=== PATIENT | female | born 1950 | race Caucasian/White ===

== ENCOUNTER 2016-07-29 14:37 | Inpatient (IN) | payer MEDICARE, OTHER ==
[~2016-07-29] VITALS: Ht 172.7 cm; Wt 95.4 kg
[2016-07-29] MEDS ORDERED: SODIUM CHLORIDE 0.9% 1L BAG IV* STA (15:12)
[2016-07-29 15:43] LABS: ADD SCAN DIFF NO
[2016-07-29 15:46] LABS: BASOPHILS % 0.4 % (0.0-2.0); EOSINOPHILS # 0.1 10^3/ul (0.0-0.5); EOSINOPHILS % 0.7 % (0.0-7.0); HEMATOCRIT 41.9 % (37.0-47.0); HEMOGLOBIN 15.4 g/dl (12.0-16.0); LYMPHOCYTES # 2.4 10^3/ul (0.8-2.9); LYMPHOCYTES % 24.6 % (15.0-51.0); MEAN CORPUSCULAR HEMOGLOBIN 31.1 pg (29.0-33.0); MEAN CORPUSCULAR HGB CONC 36.8 g/dl (32.0-37.0); MEAN CORPUSCULAR VOLUME 84.6 fl (82.0-101.0); MEAN PLATELET VOLUME 9.6 fl (7.4-10.4); MONOCYTES % 10.2 % (0.0-11.0); NEUTROPHIL # 6.2 10^3/ul (1.6-7.5); NEUTROPHILS % 63.2 % (39.0-77.0); NUCLEATED RED BLOOD CELLS # 0.1 10^3/ul (0.0-0.0); NUCLEATED RED BLOOD CELLS% 0.6 /100WBC (0.0-0.0); PLATELET COUNT 293 10^3/UL (140-415); RED BLOOD COUNT 4.95 10^6/ul (4.20-5.40); RED CELL DISTRIBUTION WIDTH 12.8 % (11.5-14.5); WHITE BLOOD COUNT 9.8 10^3/ul (4.8-10.8)
[2016-07-29 15:47] LABS: ADD UMIC YES; URINE BILIRUBIN (Dip) 1+ (NEGATIVE); URINE BLOOD (Dip) NEGATIVE (NEGATIVE); URINE COLOR LT. YELLOW (YELLOW); URINE GLUCOSE (Dip) NEGATIVE (NEGATIVE); URINE KETONES (Dip) NEGATIVE (NEGATIVE); URINE LEUKOCYTE ESTERASE (Dip) 2+ (NEGATIVE); URINE NITRITE (Dip) NEGATIVE (NEGATIVE); URINE TOTAL PROTEIN (Dip) TRACE (NEGATIVE); URINE UROBILINOGEN (Dip) 1.0 E.U./dL (0.1-1.0)
--- NOTE | 2016-07-29 15:48 | RADRPT ---
PROCEDURE: XR Chest. CLINICAL INDICATION: Sepsis TECHNIQUE: Chest AP portable COMPARISON: None available FINDINGS: The mediastinal structures are unremarkable. There is calcification of the thoracic aorta (consiste nt with atherosclerosis). The heart is normal in size and configuration. The pulmonary vascularity is normal. There are low lung volumes. There is mild bibasilar subsegmental atelectasis. No cons olidation is identified. The pleural spaces are unremarkable. The osseous structures are unremarka ble. IMPRESSION: Calcification of the thoracic aorta (consistent with atherosclerosis). Low lung volumes. Mild bibasilar subsegmental atelectasis No failure or consolidation. RPTAT: HGDB .Theodore aSnchez MD, Date Time Electronically viewed and signed by .Theodore Sanchez MD, on 07/29/2016 15:47 .B/
[2016-07-29 15:57] LABS: ALBUMIN 4.1 g/dl (3.3-4.9)
[2016-07-29 15:59] LABS: INR 0.89; PARTIAL THROMBOPLASTIN TIME 23.2 Sec (25.0-35.0); PT RATIO 0.9
[2016-07-29 16:00] LABS: BILIRUBIN,INDIRECT 0.6 mg/dl (0-1.1); BILIRUBIN,TOTAL 0.6 mg/dl (0.2-1.3); CREATININE 0.74 mg/dl (0.44-1.00)
[2016-07-29 16:01] LABS: ALBUMIN/GLOBULIN RATIO 1.2; CALCIUM 10.3 mg/dl (8.4-10.2); TOTAL PROTEIN 7.5 g/dl (6.1-8.1)
[2016-07-29 16:09] LABS: POTASSIUM 2.1 mmol/L (3.5-5.1)
[2016-07-29 16:11] LABS: ICTOTEST NEGATIVE (NEGATIVE)
[2016-07-29] MEDS ORDERED: AZTREONAM 1 GM/NS (PMX) 50 ML IVPB STA (16:11)
[2016-07-29] MEDS ORDERED: VANCOMYCIN 1 GM (PMX) 250 ML IVPB STA (16:11)
[2016-07-29] MEDS ORDERED: POTASSIUM CHLORIDE (SR) 20 MEQ TAB PO STA (16:12)
--- NOTE | 2016-07-29 16:12 | RADRPT ---
PROCEDURE: CT Brain without contrast. CLINICAL INDICATION: Altered mental status, possible sepsis TECHNIQUE: Routine CT scan of the brain was performed on a high resolution multi detector scanner without intravenous contrast. One or more of the following dose reduction techniques were used: Auto mated exposure control; Adjustment of the mA and/or kV according to patient size; Use of iterative r econstruction technique. CTDI = 42 mGy. DLP = 120 mGy-cm. COMPARISON: No prior relevant examinations are available for comparison. FINDINGS: Hemorrhage: No evidence of intracranial hemorrhage. Acute ischemic changes: No evidence of acute ischemic changes. Mass effect/Midline shift: None. Parenchymal volume: Within normal limits for age. Ventricular system: Concordant with parenchymal volume. Chronic changes: Mild chronic-appearing microvascular ischemic changes of the supratentorial white m atter. Atherosclerotic calcifications of the cavernous portions of both internal carotid arteries ar e present. Extracranial soft tissues: Unremarkable. Calvarium: No fractures. Paranasal sinuses: Visualized paranasal sinuses are clear. Mastoid air cells: Visualized mastoid air cells are clear. IMPRESSION: No acute intracranial abnormalities. Mild chronic-appearing microvascular ischemic changes of the supratentorial white matter. MRI of the brain may be useful for further evaluation. RPTAT: AADD .Benson Dotson MD, MD Date Time Electronically viewed and signed by .Benson Dotson MD, MD on 07/29/2016 16:12 .B/
[2016-07-29 16:13] LABS: TROPONIN-I 0.042 ng/ml (0.00-0.12)
[2016-07-29 16:16] LABS: BACTERIA,URINE MODERATE
[2016-07-29 16:17] LABS: MUCUS,URINE MODERATE; TRANSITIONAL EPI CELLS,URINE FEW; URINE RBCS NONE SEEN /HPF (0)
[2016-07-29] MEDS ORDERED: POTASSIUM CHLORIDE 250 ML IVPB ONE (16:30)
[2016-07-29] MEDS ORDERED: ONDANSETRON 4 MG INJ IV PRN ×2 (16:30→18:30)
[2016-07-29] MEDS ORDERED: ACETAMINOPHEN 325 MG TAB PO PRN ×2 (16:30→18:30)
--- NOTE | 2016-07-29 17:23 | RADRPT ---
PROCEDURE: CT abdomen and pelvis without IV contrast. CLINICAL INDICATION: Abdomen pain. TECHNIQUE: CT scan of the abdomen and pelvis was performed on a [address] scanner. The patient is scanned without IV contrast. Coronal and sagittal reformatted images were obtained from the axia l source images. Images were reviewed on a high-resolution PACS workstation. Total radiation dose: Total CTDIvol: 15.7 mGy. Total DLP: 1035 mGy-cm. One or more of the following dose reduction techniques were used: automated exposure control, adjustment of the mA and/or kV acc ording to patient size, or use of iterative reconstruction technique. COMPARISON: None available. FINDINGS: CT abdomen: The lung bases are clear. The heart is not enlarged without pericardial thickening or effusion. The liver is normal in size and density without focal hepatic mass or biliary dilatation. The splee n is normal in size. The stomach is partially collapsed but is grossly unremarkable. The pancreas as visualized is normal. There are multiple stones in the gallbladder and there is no evidence of biliary dilatation. The adrenal glands are symmetrical and normal. There is 2 cm simple right renal cyst. The kidneys are symmetrically normal bilaterally. No renal obstructive uropathy or mass lesion is seen.. The aorta is normal in caliber. There is no retroperitoneal lymphadenopathy. The leticia hepatis reg ion is clear. There is diffuse diverticulosis of the left colon/transverse colon without evidence o f diverticulitis. The bowel and mesentery, as visualized, are equally unremarkable. CT pelvis: There is diffuse diverticulosis of the sigmoid colon without evidence of diverticulitis. The append ix is normal in the right lower quadrant. The small bowel loops situated within the pelvis are unre markable. The pelvic organs are normal. The pelvic sidewalls and inguinal regions are clear. No m ass, lymphadenopathy is seen. No acute inflammation seen. The urinary bladder is normal. There is 2.3 cm x 1.8 cm possibly polypoid mass at the high rectum. There is fecal impaction along the rect osigmoid colon.. The surrounding osseous structures are unremarkable. No osteolytic or osteoblastic lesion is detect ed. IMPRESSION: 1. Multiple stones in the gallbladder. Normal gallbladder wall. 2. Diffuse diverticulosis of the sigmoid colon/left colon/transverse colon without evidence of dive rticulitis. 3. 2.3 cm x 1.8 cm possibly polypoid mass at the high rectum. Recommend colonoscopy for further ev aluation. Fecal impaction along the sigmoid colon. RPTAT: GG .Adama Villa MD, Date Time Electronically viewed and signed by .Adama Villa MD, on 07/29/2016 17:23 .Y/
--- NOTE | 2016-07-29 17:37 | ERA ---
ER Documentation Chief Complaint Date/Time DATE: 07/29/16 TIME: 17:27 Chief Complaint DIARRHEA, VOMITING PER DAUGHTER, PT HAS BIZARRE BEHAVIOR/DEMENTIA? HPI Patient is a 65-year-old female with mental health issues who presents with multiple complaints. She says "I drink so much water I am still dehydrated". She is having urination and bowel movements at the same time per the daughter who says that it smells. The mother moved in with her daughter 2-3 days ago when she moved down from [place]. The patient had a fever 2.5 weeks ago per the daughter. The patient does not currently have a primary doctor. Upon review of old medical records this the patient's first visit to the emergency department. Please note the history and physical exam is limited secondary to the patient's mental status. ROS All systems reviewed and are negative except as per history of present illness. Medications Home Meds No Active Prescriptions or Reported Meds Allergies Allergies: Coded Allergies: Penicillins (Verified Allergy, Unknown, 07/29/16) Novocain (Verified Allergy, 07/29/16) PMhx/Soc Medical and Surgical Hx: pt denies Medical Hx, pt denies Surgical Hx Hx Alcohol Use: No Hx Substance Use: No Hx Tobacco Use: No Smoking Status: Never smoker FmHx Family History: diabetes Physical Exam Vitals Vital Signs Date Time Temp Pulse Resp B/P Pulse Ox O2 Delivery O2 Flow Rate FiO2 07/29/16 16:21 90 16 121/66 100 Room Air 07/29/16 14:40 98.1 110 20 144/63 99 Physical Exam Const: No acute distress Head: Atraumatic Eyes: Normal Conjunctiva ENT: Normal External Ears, Nose and Mouth. Neck: Full range of motion..~ No meningismus. Resp: Clear to auscultation bilaterally Cardio: Tachycardic rate without murmur Abd: Soft, non tender, non distended. Normal bowel sounds Skin: No petechiae or rashes Back: No midline or flank tenderness Ext: No cyanosis, or edema Neur: Awake but confused Result Diagram: 07/29/16 1521 07/29/16 1521 Results 24 hrs Laboratory Tests Test 07/29/16 15:21 07/29/16 15:27 White Blood Count 9.810^3/ul Red Blood Count 4.9510^6/ul Hemoglobin 15.4g/dl Hematocrit 41.9% Mean Corpuscular Volume 84.6fl Mean Corpuscular Hemoglobin 31.1pg Mean Corpuscular Hemoglobin Concent 36.8g/dl Red Cell Distribution Width 12.8% Platelet Count 26479^3/UL Mean Platelet Volume 9.6fl Neutrophils % 63.2% Lymphocytes % 24.6% Monocytes % 10.2% Eosinophils % 0.7% Basophils % 0.4% Nucleated Red Blood Cells % 0.6/100WBC Neutrophils # 6.210^3/ul Lymphocytes # 2.410^3/ul Monocytes # 1.010^3/ul Eosinophils # 0.110^3/ul Basophils # 0.010^3/ul Nucleated Red Blood Cells # 0.110^3/ul Prothrombin Time 12.0Sec Prothrombin Time Ratio 0.9 INR International Normalized Ratio 0.89 Activated Partial Thromboplast Time 23.2Sec Urine Color LT. YELLOW Urine Clarity CLOUDY Urine pH 5.5 Urine Specific Warren 1.015 Urine Ketones NEGATIVE Urine Nitrite NEGATIVE Urine Bilirubin 1+ Urine Ictotest NEGATIVE Urine Urobilinogen 1.0 E.U./dL Urine Leukocyte Esterase 2+ Urine Microscopic RBC NONE SEEN/HPF Urine Microscopic WBC >50/HPF Urine Transitional Epithelial Cells FEW Urine Amorphous Urates MANY Urine Bacteria MODERATE Urine Mucus MODERATE Urine Hemoglobin NEGATIVE Urine Glucose NEGATIVE% Urine Total Protein TRACE Sodium Level 142mmol/L Potassium Level 2.1mmol/L Chloride Level 91mmol/L Carbon Dioxide Level 33mmol/L Anion Gap 20 Blood Urea Nitrogen 16mg/dl Creatinine 0.74mg/dl Glucose Level 229mg/dl Calcium Level 10.3mg/dl Total Bilirubin 0.6mg/dl Direct Bilirubin 0.00mg/dl Indirect Bilirubin 0.6mg/dl Aspartate Amino Transf (AST/SGOT) 69IU/L Alanine Aminotransferase (ALT/SGPT) 51IU/L Alkaline Phosphatase 77IU/L Troponin I 0.042ng/ml Total Protein 7.5g/dl Albumin 4.1g/dl Globulin 3.40g/dl Albumin/Globulin Ratio 1.20 Lactic Acid Level 5.0mmol/L Current Medications Medications (Trade) Dose Ordered Sig/John Route PRN Reason Start Time Stop Time Status Last Admin Dose Admin Sodium Chloride 2420 ml 2,420 ml BOLUS OVER 2 HOURS STAT IV* 07/29/16 15:12 56/17 15:13 DC 07/29/16 15:26 Vancomycin HCl 250 ml @ 125 mls/hr ONCE STAT IVPB 07/29/16 16:11 07/29/16 18:10 07/29/16 16:32 Aztreonam (Azactam 1gm/NS (Pmx)) 50 ml @ 100 mls/hr ONCE STAT IVPB 07/29/16 16:11 07/29/16 16:40 DC 07/29/16 16:55 Potassium Chloride 40 meq 40 meq ONCE STAT PO 07/29/16 16:12 07/29/16 16:13 DC 07/29/16 16:32 Potassium Chloride (KCl 40 MEQ/250 ML NS) 250 ml @ 62.5 mls/hr ONCE ONCE IVPB 07/29/16 16:30 07/29/16 20:29 07/29/16 16:55 Ondansetron HCl (Zofran Inj) 4 mg BRIDGE ORDER PRN IV NAUSEA AND/OR VOMITING 07/29/16 16:30 07/30/16 16:29 Acetaminophen (Tylenol Tab) 650 mg ER BRIDGE PRN PO MILD PAIN/FEVER 07/29/16 16:30 07/30/16 16:29 Procedures/MDM EKG read by me: Rate/Rhythm: Regular rate and rhythm at a rate of 97 Intervals: Normal Impression: Diffuse ST depressions PROCEDURE: CT abdomen and pelvis without IV contrast. CLINICAL INDICATION: Abdomen pain. TECHNIQUE: CT scan of the abdomen and pelvis was performed on a [address] scanner. The patient is scanned without IV contrast. Coronal and sagittal reformatted images were obtained from the axial source images. Images were reviewed on a high-resolution PACS workstation. Total radiation dose: Total CTDIvol: 15.7 mGy. Total DLP: 1035 mGy-cm. One or more of the following dose reduction techniques were used: automated exposure control, adjustment of the mA and/or kV according to patient size, or use of iterative reconstruction technique. COMPARISON: None available. FINDINGS: CT abdomen: The lung bases are clear. The heart is not enlarged without pericardial thickening or effusion. The liver is normal in size and density without focal hepatic mass or biliary dilatation. The spleen is normal in size. The stomach is partially collapsed but is grossly unremarkable. The pancreas as visualized is normal. There are multiple stones in the gallbladder and there is no evidence of biliary dilatation. The adrenal glands are symmetrical and normal. There is 2 cm simple right renal cyst. The kidneys are symmetrically normal bilaterally. No renal obstructive uropathy or mass lesion is seen.. The aorta is normal in caliber. There is no retroperitoneal lymphadenopathy. The leticia hepatis region is clear. There is diffuse diverticulosis of the left colon/transverse colon without evidence of diverticulitis. The bowel and mesentery, as visualized, are equally unremarkable. CT pelvis: There is diffuse diverticulosis of the sigmoid colon without evidence of diverticulitis. The appendix is normal in the right lower quadrant. The small bowel loops situated within the pelvis are unremarkable. The pelvic organs are normal. The pelvic sidewalls and inguinal regions are clear. No mass, lymphadenopathy is seen. No acute inflammation seen. The urinary bladder is normal. There is 2.3 cm x 1.8 cm possibly polypoid mass at the high rectum. There is fecal impaction along the rectosigmoid colon.. The surrounding osseous structures are unremarkable. No osteolytic or osteoblastic lesion is detected. IMPRESSION: 1. Multiple stones in the gallbladder. Normal gallbladder wall. 2. Diffuse diverticulosis of the sigmoid colon/left colon/transverse colon without evidence of diverticulitis. 3. 2.3 cm x 1.8 cm possibly polypoid mass at the high rectum. Recommend colonoscopy for further evaluation. Fecal impaction along the sigmoid colon. RPTAT: GG .Adama Villa MD, MD Date Time Electronically viewed and signed by .Adama Villa MD, on 07/29/2016 17:23 PROCEDURE: CT Brain without contrast. CLINICAL INDICATION: Altered mental status, possible sepsis TECHNIQUE: Routine CT scan of the brain was performed on a high resolution multi detector scanner without intravenous contrast. One or more of the following dose reduction techniques were used: Automated exposure control; Adjustment of the mA and/or kV according to patient size; Use of iterative reconstruction technique. CTDI = 42 mGy. DLP = 120 mGy-cm. COMPARISON: No prior relevant examinations are available for comparison. FINDINGS: Hemorrhage: No evidence of intracranial hemorrhage. Acute ischemic changes: No evidence of acute ischemic changes. Mass effect/Midline shift: None. Parenchymal volume: Within normal limits for age. Ventricular system: Concordant with parenchymal volume. Chronic changes: Mild chronic-appearing microvascular ischemic changes of the supratentorial white matter. Atherosclerotic calcifications of the cavernous portions of both internal carotid arteries are present. Extracranial soft tissues: Unremarkable. Calvarium: No fractures. Paranasal sinuses: Visualized paranasal sinuses are clear. Mastoid air cells: Visualized mastoid air cells are clear. IMPRESSION: No acute intracranial abnormalities. Mild chronic-appearing microvascular ischemic changes of the supratentorial white matter. MRI of the brain may be useful for further evaluation. RPTAT: AADD .Benson Dotson MD, MD Date Time Electronically viewed and signed by .Benson Dotson MD, MD on 07/29/2016 16:12 Chest x-ray shows no pneumonia per radiology. Admit MDM: Patient's infectious symptoms have not stabilized and the patient is at risk of rapid decompensation. The patient will be admitted for careful hydration, antibiotic therapy, and infectious source control. Severe Sepsis criteria: Infectious source: Cystitis End organ damage indicated by: Lactate greater than 2 Sepsis Management: Time of recognition of sepsis: 15:27 Within 3 hours of recognition: Blood cultures x 2 before broad-spectrum antibiotics: Yes 30 ml/kg NS bolus Completed Initial lactate 5.0 Repeat lactate pending Time of recognition of septic shock: 15:27 Septic Shock Assessment: Any lactic acid > 4.0 Yes Persistent hypotension (SBP < 90 or 40 mmHg drop, MAP < 65) despite 30 mL/kg IV fluid bolus No Volume Re-assessment for Septic Shock (post 30 ml/kg bolus): Temp 98.1, BP 121/66, HR 90, RR 16, Pox 100% Heart Regular rate & rhythm Lungs No crackles Skin Warm & dry Cap Refill Less than 2 seconds Peripheral pulses Radially present Persistent Hypotension Treatment: Comfort care No Central line Not Required Vasopressor started Not required I considered further perfusion assessment with CVP measurement, SCVO2, bedside ultrasound volume assessment, passive leg raise, trial of further fluid bolus. And proceeded with 30 ml/kg fluid bolus of NSS, broad spectrum antibiotics, and admission. The patient had hypokalemia with a potassium of 2.1 and was given potassium both by mouth and via IV. Accepting Care Team Current data and ongoing care discussed. Admitting Physician: Dr. Long from the panel team Design Quality Engineer(s): None Outstanding Data: Culture results and repeat lactic acid Critical Care: Critical care time 40 minutes excluding all billable procedures Emergent fluid management while maintaining close respiratory support. Provision of immediate and broad-spectrum antibiotic therapy. Simultaneous assessment for possible sources in order to direct targeted therapy. Consideration for invasive and chemical support to prevent cardiopulmonary collapse. Departure Diagnosis: Primary Impression: Septic shock Additional Impressions: Altered mental status Qualified Code: R41.82 - Altered mental status, unspecified altered mental status type Cystitis Hypokalemia Condition: Serious VIVIAN MEDINA MD July 29, 2016 17:37
[2016-07-29] MEDS ORDERED: ZOLPIDEM 5 MG TAB PO PRN (18:30)
[2016-07-29] MEDS ORDERED: VANCOMYCIN IV PER PHARMACY XX SCH (18:30)
[2016-07-29] MEDS ORDERED: NACL 0.9% 3 ML SYG IV SCH (18:30)
[2016-07-29] MEDS ORDERED: HYDROCODONE/APAP (5/325) TAB PO PRN (18:30)
[2016-07-29 18:52] VITALS: BMI 31.6
[2016-07-29 18:54] VITALS: BP 121/59; PULSE 110; RESP 16
[2016-07-29 19:03] VITALS: PULSE 90
[2016-07-29 19:41] LABS: CANCER ANTIGEN 125 17.4 U/ml (0.0-35.0); CARCINOEMBRYONIC ANTIGEN 15.6 ng/ml (0.0-5.0)
--- NOTE | 2016-07-29 19:41 | HP ---
DATE OF ADMISSION: 07/29/2016 TIME OF EVALUATION: 1800. REASON FOR ADMISSION: Brought in by family because of diarrhea and generalized weakness. CONSULTATIONS: Dr. Jace So, Gastroenterology. HISTORY OF PRESENT ILLNESS: This is a 65-year-old female patient who denied any significant past medical history other than some dyslipidemia who came to the emergency room, brought in by family members because of multiple episodes of diarrhea and generalized weakness and bizarre behavior, as per the family. The patient was living in [facility] by herself. For the past 3 weeks, the patient has been suffering from frequent diarrhea and frequent urination. The patient also verbalized some blood particles and other particles in the stool. When questioned about delay in seeking medical attention, the patient verbalized that she does not like to go to a hospital. Nevertheless, the patient used to work as a MARKETING AUTOMATION SPECIALIST. The patient does not have a primary care doctor. The patient does not take any medications regularly at home. The patient was also complaining of fevers. The patient denied any vomiting to me. The patient was complaining of pain in the perianal area. The patient's daughter brought her from the [place] area to live with her in [place] because the daughter thought that the patient is not safe living by herself. The patient's daughter also verbalized that the patient has foul smelling bowel and bladder movements and the bowel movement is mixed with the urine. The patient denied any sick contacts. In the emergency room, the patient was noticed to have severe hypokalemia with a potassium of 2.1. The patient was also noticed to have anion gap acidosis with anion gap of 20. She was noticed to have a lactic acidosis with lactic acid level of 5.0. The patient's random blood glucose was 229. The patient had no leukocytosis. The patient was not febrile. The patient's blood pressure was stable. The patient underwent a brain CT scan in the emergency room that was negative for any acute intracranial abnormalities. The patient underwent a CT scan of the abdomen and pelvis that showed multiple gallstones in the gallbladder, but a normal gallbladder wall. The CT also revealed diffuse diverticulosis of the sigmoid colon, transverse colon without evidence of diverticulitis. The CT also revealed a 2.3 x 1.8 cm, possibly polyploid mass at high rectum. The patient was treated with IV fluids and IV antibiotics along with potassium replacement in the emergency room. PAST MEDICAL HISTORY: Dyslipidemia. PAST SURGICAL HISTORY: Tubal ligation, left oophorectomy. HOME MEDICATIONS: None. ALLERGIES: 1. PENICILLIN. 2. PROCAINE. SOCIAL HISTORY: No history of tobacco, alcohol, or illicit drug use. The patient used to work as a MARKETING AUTOMATION SPECIALIST. The patient used to live by herself near [facility]. Currently, moved to [place] to live with her daughter. FAMILY HISTORY: Positive family history of type 2 diabetes mellitus. REVIEW OF SYSTEMS: A 14-point review of systems were made and review of systems was negative other than what is mentioned in history of present illness. PHYSICAL EXAMINATION: VITAL SIGNS: Temperature 98.1, pulse rate 90, respiratory rate 16, blood pressure 121/66, oxygen saturation 100% on room air. GENERAL: This is a well-built, well-nourished female lying in bed in no apparent distress. HEENT: Head normocephalic and atraumatic. Eyes: Anicteric sclerae. Conjunctivae clear. ENT: Nasal septum is midline. Oral mucosa is dry. NECK: Supple. No JVD noticed. RESPIRATORY: Bilaterally clear to auscultation. No adventitious breath sounds. No use of accessory muscles for respiration. CARDIAC: Regular rate and rhythm. S1, S2 heard. ABDOMEN: Soft, nontender, and nondistended. Bowel sounds hypoactive in all 4 quadrants. GENITOURINARY: Deferred. EXTREMITIES: No cyanosis, no clubbing. Trace of pretibial edema bilaterally. Peripheral pulses palpable. NEUROLOGIC: The patient is awake and alert. Moves all 4 extremities. Oriented x2. No focal deficits. LABORATORY AND DIAGNOSTIC DATA: WBC 9.8, hemoglobin 15.4, hematocrit 41.9, platelet count 293. Sodium 142, potassium 2.1, chloride 91, carbon dioxide 33, anion gap 20, BUN 16, creatinine 0.74, glucose 229. Lactic acid 5.0. Calcium 10.3. AST 69, ALT 51, alkaline phosphatase 77. Troponin 0.042. Total protein 7.5, albumin 4.1. PT 12.1, INR 0.898, PTT 23.2. Urinalysis: Urine nitrite negative, leukocyte esterase 2+, urine microscopic WBC greater than 50. Chest x-ray: Calcification of the thoracic aorta. Low lung volumes. Mild bibasilar subsegmental atelectasis. No failure or consolidation. Brain CT scan: No acute intracranial abnormalities. Mild chronic appearing microvascular ischemic changes of the supratentorial white matter. CT scan of the abdomen and pelvis: Multiple stones in the gallbladder. Normal gallbladder wall. Diffuse diverticulosis of the sigmoid colon/left colon/ transverse colon without evidence of diverticulitis. A 2.3 x 1.8 cm possible polypoid mass at the high rectum. Fecal impaction along the sigmoid colon. 12-lead EKG: Normal sinus rhythm. IMPRESSION: A 65-year-old female patient who came to the emergency room with multiple complaints who was found to have sepsis, most probably secondary to underlying urinary tract infection. She will be admitted here for further treatment and evaluation. ASSESSMENT AND PLAN: 1. Sepsis with no evidence of underlying septic shock. The patient has underlying lactic acidosis, she has underlying hyperglycemia and suspected source of infection as urinary. The patient has no evidence of any septic shock. The patient will be maintained on empiric antibiotics. Pancultures will be ordered. The patient will be maintained on IV fluids. 2. Severe hypokalemia, most probably secondary to underlying potassium loss from diarrhea. The patient's potassium will be repleted. A serum magnesium level will be obtained. The patient's cardiac rhythm will be monitored closely. 3. Anion gap acidosis. Most probably secondary to underlying sepsis. The patient will be adequately hydrated using IV fluids. 4. Hyperglycemia. Most probably secondary to underlying sepsis. The patient has family history of diabetes. Hemoglobin A1c will be obtained to evaluate the blood glucose control over the past few weeks. 5. Acute encephalopathy. Brain CT scan negative for any acute intracranial findings. This could be most probably metabolic in origin from underlying infection. The patient's neuro status will be monitored closely. Neuro checks will be ordered. 6. Possible polypoid mass in the high rectum. This was an incidental finding. Tumor markers will be ordered on this patient. Gastroenterology consult will be ordered to evaluate for colonoscopy. Plan. The patient will be admitted to inpatient telemetry floor. The patient will be started on a clear liquid diet. The patient will be started on deep vein thrombosis prophylaxis and gastrointestinal prophylaxis. The patient will remain a FULL CODE. Activities will be with assistance. The rest of the patient's management will be based on the clinical course, the results of diagnostic studies, and input from consultants. Based on the patient's clinical presentation, she most probably requires at least 2 midnights' stay for further management and evaluation of her clinical presentation. The case and management of this patient was fully discussed with Dr. Murdock. VINAYAK MURDOCK MD, AM/RAMIRO Conf#: [id number] DID#: [id number]
[2016-07-29 19:45] LABS: CANCER ANTIGEN 19-9 24.2 U/ml (0.0-37.0)
[2016-07-29 20:00] VITALS: Ht 172.7 cm; Wt 95.4 kg
[2016-07-29] MEDS ORDERED: VANCOMYCIN 750 MG in SOD CHLORIDE 0.9% 150 ML IVPB SCH (20:00)
[2016-07-29 20:03] VITALS: PULSE 90
[2016-07-29 20:05] VITALS: BP 106/59; RESP 16
[2016-07-29] MEDS: NS + KCL 20 MEQ 1,000 ML IV SCH (20:52)
[2016-07-29] MEDS: FAMOTIDINE 20 MG INJ IV SCH (20:52)
[2016-07-29 23:07] LABS: CREATININE 0.58 mg/dl (0.44-1.00)
[2016-07-29 23:08] LABS: CALCIUM 8.5 mg/dl (8.4-10.2)
[2016-07-29 23:33] LABS: POTASSIUM 2.1 mmol/L (3.5-5.1)
[2016-07-30] VITALS (12 sets, daily range): BP systolic 100–124; BP diastolic 57–73; PULSE 69–100; RESP 16–18
[2016-07-30] MEDS: AZTREONAM 1 GM/NS (PMX) 50 ML IVPB SCH ×2 (00:23→09:29)
[2016-07-30] MEDS: POTASSIUM CHLORIDE 250 ML IVPB SCH ×2 (02:05→05:55)
[2016-07-30] MEDS: NS + KCL 20 MEQ 1,000 ML IV SCH ×2 (05:00→09:29)
[2016-07-30] MEDS: VANCOMYCIN 750 MG in SOD CHLORIDE 0.9% 150 ML IVPB SCH ×2 (05:54→17:26)
[2016-07-30 05:55] LABS: ADD SCAN DIFF NO
[2016-07-30 05:57] LABS: BASOPHILS % 0.6 % (0.0-2.0); EOSINOPHILS # 0.2 10^3/ul (0.0-0.5); EOSINOPHILS % 2.3 % (0.0-7.0); HEMATOCRIT 33.4 % (37.0-47.0); LYMPHOCYTES # 2.4 10^3/ul (0.8-2.9); LYMPHOCYTES % 36.3 % (15.0-51.0); MEAN CORPUSCULAR HEMOGLOBIN 30.9 pg (29.0-33.0); MEAN CORPUSCULAR HGB CONC 35.9 g/dl (32.0-37.0); MEAN CORPUSCULAR VOLUME 86.1 fl (82.0-101.0); MEAN PLATELET VOLUME 9.3 fl (7.4-10.4); MONOCYTE # 0.9 10^3/ul (0.3-0.9); MONOCYTES % 13.5 % (0.0-11.0); NEUTROPHILS % 46.5 % (39.0-77.0); PLATELET COUNT 199 10^3/UL (140-415); RED BLOOD COUNT 3.88 10^6/ul (4.20-5.40); RED CELL DISTRIBUTION WIDTH 13.3 % (11.5-14.5); WHITE BLOOD COUNT 6.5 10^3/ul (4.8-10.8)
[2016-07-30 06:29] LABS: CHOL/HDL RATIO 2.8 RATIO; MAGNESIUM 1.4 mg/dl (1.7-2.5); PHOSPHORUS 1.1 mg/dl (2.5-4.9)
[2016-07-30 06:40] LABS: ALBUMIN 2.8 g/dl (3.3-4.9); ALBUMIN/GLOBULIN RATIO 1.07; BILIRUBIN,INDIRECT 0.4 mg/dl (0-1.1); BILIRUBIN,TOTAL 0.4 mg/dl (0.2-1.3); CALCIUM 8.6 mg/dl (8.4-10.2); CREATININE 0.56 mg/dl (0.44-1.00); TOTAL PROTEIN 5.4 g/dl (6.1-8.1)
[2016-07-30 06:47] LABS: POTASSIUM 2.7 mmol/L (3.5-5.1)
[2016-07-30 08:04] LABS: CK-MB 1.89 ng/ml (0.0-2.4); TROPONIN-I 0.032 ng/ml (0.00-0.12)
[2016-07-30] MEDS: FAMOTIDINE 20 MG INJ IV SCH ×2 (09:31→21:08)
[2016-07-30] MEDS: morphine 2 MG INJ IV PRN ×2 (09:40→21:08)
[2016-07-30] MEDS ORDERED: POTASSIUM CHLORIDE (SR) 20 MEQ TAB PO STA (09:54)
[2016-07-30] MEDS ORDERED: POTASSIUM CHLORIDE 250 ML IVPB ONE (10:00)
--- NOTE | 2016-07-30 10:14 | PN ---
Date/Time of Note Date/Time of Note DATE: 07/30/16 TIME: 10:07 Assessment/Plan VTE Prophylaxis VTE Prophylaxis Intervention: heparin Lines/Catheters IV C[facility]ter Type (from [email or web address] Peripheral IV Urinary Cath still in place: No Assessment/Plan Problems: (1) Vitamin D deficiency Status: Acute Comment: We will replete this. Patient has an interesting metabolic picture I am concerned that we have some real GI tract issues going on here. (2) Lactic acidosis Status: Acute Comment: We will recheck this. I suspect she is getting better with treatment of the underlying infection. However there is something else going on with the patient having had unplanned weight loss and all these electrolyte abnormalities and a GI tract question (3) Intractable diarrhea Status: Acute Comment: Awaiting GI consultation. Everything else is stabilizing. We will get her repleted in terms of her electrolytes and see what we can find in her workup. I am extremely concerned were going to find a growth in the colon (4) Hypophosphatemia Status: Acute Comment: Follow and replace (5) Urinary tract infection Status: Acute Comment: On antibiotics pending culture Qualifiers: Urinary tract infection type: acute cystitis Hematuria presence: without hematuria Qualified Code: N30.00 - Acute cystitis without hematuria (6) Hypomagnesemia Status: Acute Comment: Replace IV and oral (7) Hypokalemia Status: Acute Comment: Replace IV and oral (8) Altered mental status Status: Acute Comment: This is improved. However I am still concerned about what is going on with her. 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 Constitutional: no complaints (Denies fevers chills or sweats) Eyes: no complaints ENT: no complaints Respiratory: no complaints Cardiovascular: no complaints Gastrointestinal: diarrhea (Reports diarrhea is less) Genitourinary: no complaints Musculoskeletal: no complaints Skin: no complaints Neurologic: no complaints Exam/Review of Systems Vital Signs Vitals Vital Signs Date Time Temp Pulse Resp B/P Pulse Ox O2 Delivery O2 Flow Rate FiO2 07/30/16 08:08 82 07/30/16 07:17 97.3 17 110/61 97 07/29/16 18:54 Room Air Intake and Output 5/6/17 5/6/17 5/7/17 15:00 23:00 07:00 Intake Total 150 ml 557.5 ml Output Total 400 ml Balance 150 ml 157.5 ml Exam Constitutional: alert, oriented (Patient is oriented to July 30, 2016 situation location) Neck: non-tender, supple Respiratory: clear to auscultation, normal air movement Cardiovascular: nl pulses, regular rate and rhythm Gastrointestinal: nl liver, spleen, soft Results Result Diagram: 07/30/16 0535 07/30/16 0535 Results 24 hrs Laboratory Tests Test 07/29/16 15:21 07/29/16 15:27 07/29/16 18:10 07/29/16 20:00 White Blood Count 9.8 Red Blood Count 4.95 Hemoglobin 15.4 Hematocrit 41.9 Mean Corpuscular Volume 84.6 Mean Corpuscular Hemoglobin 31.1 Mean Corpuscular Hemoglobin Concent 36.8 Red Cell Distribution Width 12.8 Platelet Count 293 Mean Platelet Volume 9.6 Neutrophils % 63.2 Lymphocytes % 24.6 Monocytes % 10.2 Eosinophils % 0.7 Basophils % 0.4 Nucleated Red Blood Cells % 0.6 H Neutrophils # 6.2 Lymphocytes # 2.4 Monocytes # 1.0 H Eosinophils # 0.1 Basophils # 0.0 Nucleated Red Blood Cells # 0.1 H Prothrombin Time 12.0 L Prothrombin Time Ratio 0.9 INR International Normalized Ratio 0.89 Activated Partial Thromboplast Time 23.2 L Urine Color LT. YELLOW Urine Clarity CLOUDY Urine pH 5.5 Urine Specific [place] 1.015 Urine Ketones NEGATIVE Urine Nitrite NEGATIVE Urine Bilirubin 1+ H Urine Ictotest NEGATIVE Urine Urobilinogen 1.0 E.U./dL Urine Leukocyte Esterase 2+ H Urine Microscopic RBC NONE SEEN Urine Microscopic WBC >50 Urine Transitional Epithelial Cells FEW Urine Amorphous Urates MANY Urine Bacteria MODERATE Urine Mucus MODERATE Urine Hemoglobin NEGATIVE Urine Glucose NEGATIVE Urine Total Protein TRACE Sodium Level 142 Potassium Level 2.1 *L Chloride Level 91 L Carbon Dioxide Level 33 H Anion Gap 20 H Blood Urea Nitrogen 16 Creatinine 0.74 Glucose Level 229 H Hemoglobin A1c 5.5 Calcium Level 10.3 H Total Bilirubin 0.6 Direct Bilirubin 0.00 Indirect Bilirubin 0.6 Aspartate Amino Transf (AST/SGOT) 69 H Alanine Aminotransferase (ALT/SGPT) 51 Alkaline Phosphatase 77 Troponin I 0.042 Total Protein 7.5 Albumin 4.1 Globulin 3.40 H Albumin/Globulin Ratio 1.20 Thyroid Stimulating Hormone (TSH) 4.680 Free Thyroxine 1.54 Lactic Acid Level 5.0 *H 4.2 *H 3.8 H Magnesium Level 1.4 L Carcinoembryonic Antigen 15.6 H CA 19-9 Antigen 24.2 CA 125 Antigen 17.4 Vitamin D 1,25-Dihydroxy < 12.8 L Test 07/29/16 22:32 07/30/16 05:35 Sodium Level 142 139 Potassium Level 2.1 *L 2.7 *L Chloride Level 102 # 105 Carbon Dioxide Level 31 29 Anion Gap 11 # 8 Blood Urea Nitrogen 12 10 Creatinine 0.58 0.56 Glucose Level 105 # 107 Calcium Level 8.5 8.6 White Blood Count 6.5 # Red Blood Count 3.88 #L Hemoglobin 12.0 # Hematocrit 33.4 #L Mean Corpuscular Volume 86.1 Mean Corpuscular Hemoglobin 30.9 Mean Corpuscular Hemoglobin Concent 35.9 Red Cell Distribution Width 13.3 Platelet Count 199 # Mean Platelet Volume 9.3 Neutrophils % 46.5 Lymphocytes % 36.3 Monocytes % 13.5 H Eosinophils % 2.3 Basophils % 0.6 Nucleated Red Blood Cells % 0.0 Neutrophils # 3.0 Lymphocytes # 2.4 Monocytes # 0.9 Eosinophils # 0.2 Basophils # 0.0 Nucleated Red Blood Cells # 0.0 Phosphorus Level 1.1 L Magnesium Level 1.4 L Total Bilirubin 0.4 Direct Bilirubin 0.00 Indirect Bilirubin 0.4 Aspartate Amino Transf (AST/SGOT) 46 Alanine Aminotransferase (ALT/SGPT) 50 Alkaline Phosphatase 59 Creatine Kinase 54 Creatine Kinase Index 3.5 Creatinine Kinase MB (Mass) 1.89 Troponin I 0.032 Total Protein 5.4 #L Albumin 2.8 #L Globulin 2.60 Albumin/Globulin Ratio 1.07 Triglycerides Level 183 H Cholesterol Level 132 LDL Cholesterol, Calculated 48 HDL Cholesterol 47 Cholesterol/HDL Ratio 2.8 Medications Medications Current Medications Potassium Chloride/Sodium Chloride 1,000 ml @ 100 mls/hr Q10H IV Last administered on 07/30/16t 09:29; Admin Dose 100 MLS/HR; Start 07/29/16 at 19:00 Aztreonam (Azactam 1gm/NS (Pmx)) 50 ml @ 100 mls/hr Q12 IVPB Last administered on 07/30/16 09:29; Admin Dose 100 MLS/HR; Start 07/30/16 at 01:00 Ondansetron HCl (Zofran Inj) 4 mg Q6H PRN IV NAUSEA AND/OR VOMITING Last administered on 07/30/16 09:40; Admin Dose 4 MG; Start 07/29/16 at 18:30 Acetaminophen (Tylenol Tab) 650 mg Q6H PRN PO PAIN LEVEL 1-3 OR FEVER; Start at 18:30 Acetaminophen/ Hydrocodone Bitart ([place] (5/325)) 1 tab Q6H PRN PO MODERATE PAIN LEVEL 4-6; Start 07/29/16 at 18:30 Morphine Sulfate (morphine) 2 mg Q4H PRN IV SEVERE PAIN LEVEL 7-10 Last administered on 07/30/16 09:40; Admin Dose 2 MG; Start 07/29/16 at 18:30 Zolpidem Tartrate (Ambien) 5 mg QHS PRN PO SLEEP; Start 07/29/16 at 18:30 Famotidine 20 mg 20 mg Q12 IV Last administered on 07/30/16 09:31; Admin Dose 20 MG; Start 07/29/16 at 21:00 Vancomycin HCl 750 mg/Sodium Chloride 150 ml @ 75 mls/hr Q12H IVPB Last administered on 07/30/16 05:54; Admin Dose 75 MLS/HR; Start 07/30/16 at 04:00 Potassium Chloride (KCl 40 MEQ/250 ML NS) 250 ml @ 62.5 mls/hr ONCE ONCE IVPB ; Start 07/30/16 at 10:00; Stop 07/30/16 at 13:59; Status SUNNY SOLIS MD July 30, 2016 10:14
--- NOTE | 2016-07-30 11:16 | CONS ---
Date/Time of Note Date/Time of Note DATE: 07/30/16 TIME: 11:16 Assessment/Plan Assessment/Plan Additional Assessment/Plan LLQ Abdominal pain/diverticulosis/diarrhea Continue antibiotic treatment Start clear diet Bowel prep Empiric antibiotic treatment Rectal mass/pain Bowel prep Colonoscopy tomorrow with Dr. So, patient and daughter advised of risks/ benefits/alternatives to procedure and daughter who is the POA provides informed consent to proceed May require surgical consult CT abdomen: The liver is normal in size and density without focal hepatic mass or biliary dilatation. The spleen is normal in size. The stomach is partially collapsed but is grossly unremarkable. The pancreas as visualized is normal. There are multiple stones in the gallbladder and there is no evidence of biliary dilatation.There is diffuse diverticulosis of the sigmoid colon without evidence of diverticulitis. The appendix is normal in the right lower quadrant. The small bowel loops situated within the pelvis are unremarkable. The pelvic organs are normal. There is 2.3 cm x 1.8 cm possibly polypoid mass at the high rectum. There is fecal impaction along the rectosigmoid colon. UTI Management per Primary Continue antibiotic treatment Altered level consciousness Management per Primary May require psych consult Further recommendations depend on clinical course Patient seen in collaboration with Dr. So Consultation Date/Type/Reason Admit Date/Time July 29, 2016 at 16:31 Type of Consultation: Gastroenteritis Reason for Consultation Diarrhea Hx of Present Illness Ms. Glenys Agrawal is a 65-year-old woman that presented to ED for further evaluation of diarrhea. Patient reports intermittent diarrhea, rectal pain, and possible vaginal bleeding since July 03. Patient denies previous episode and colonoscopy. Patient denies family history of colon cancer or inflammatory bowel disease. Patient denies abdominal pain, nausea, vomiting, fever, chills, sick contacts, travel outside [place], and new medications. Patient unable to provide concise history of symptoms and may be slightly confused. Patient did report past medical history of menopause in 1999 and left oophorectomy secondary to tubal in 1987. CT of abdomen notes rectal mass. Spoke to daughter, who is DPOAE, about findings and recommendation of colonoscopy. Daughter states that she will sign for procedure. Constitutional: no complaints (Denies fevers chills or sweats) Eyes: no complaints ENT: no complaints Respiratory: no complaints Cardiovascular: no complaints Gastrointestinal: diarrhea (Reports diarrhea is less) Genitourinary: no complaints Musculoskeletal: no complaints Skin: no complaints Neurologic: no complaints Past Surgical History Past Surgical Hx: other (Oophorectomy) Social History Alcohol Use: rarely Smoking Status: Never smoker Exam/Review of Systems Vital Signs Vitals Vital Signs Date Time Temp Pulse Resp B/P Pulse Ox O2 Delivery O2 Flow Rate FiO2 07/30/16 08:08 82 07/30/16 07:17 97.3 17 110/61 97 07/29/16 18:54 Room Air Intake and Output 07/29/16 07/29/16 07/30/16 15:00 23:00 07:00 Intake Total 150 ml 557.5 ml Output Total 400 ml Balance 150 ml 157.5 ml Exam Constitutional: alert, oriented, well developed Psych: nl mood/affect Head: normocephalic Eyes: EOMI, nl conjunctiva, nl lids ENMT: nl external ears & nose, nl lips & teeth, nl nasal mucosa & septum Respiratory: clear to auscultation, normal air movement Cardiovascular: regular rate and rhythm Gastrointestinal: soft, slight left lower quadrant abdominal pain Musculoskeletal: nl extremities to inspection Neurological: CATERPILLAR [employer]IVER II-XII intact Results Result Diagram: 07/30/16 0535 07/30/16 0535 Results 24 hrs Laboratory Tests Test 07/29/16 15:21 07/29/16 15:27 07/29/16 18:10 07/29/16 20:00 White Blood Count 9.8 Red Blood Count 4.95 Hemoglobin 15.4 Hematocrit 41.9 Mean Corpuscular Volume 84.6 Mean Corpuscular Hemoglobin 31.1 Mean Corpuscular Hemoglobin Concent 36.8 Red Cell Distribution Width 12.8 Platelet Count 293 Mean Platelet Volume 9.6 Neutrophils % 63.2 Lymphocytes % 24.6 Monocytes % 10.2 Eosinophils % 0.7 Basophils % 0.4 Nucleated Red Blood Cells % 0.6 H Neutrophils # 6.2 Lymphocytes # 2.4 Monocytes # 1.0 H Eosinophils # 0.1 Basophils # 0.0 Nucleated Red Blood Cells # 0.1 H Prothrombin Time 12.0 L Prothrombin Time Ratio 0.9 INR International Normalized Ratio 0.89 Activated Partial Thromboplast Time 23.2 L Urine Color LT. YELLOW Urine Clarity CLOUDY Urine pH 5.5 Urine Specific House 1.015 Urine Ketones NEGATIVE Urine Nitrite NEGATIVE Urine Bilirubin 1+ H Urine Ictotest NEGATIVE Urine Urobilinogen 1.0 E.U./dL Urine Leukocyte Esterase 2+ H Urine Microscopic RBC NONE SEEN Urine Microscopic WBC >50 Urine Transitional Epithelial Cells FEW Urine Amorphous Urates MANY Urine Bacteria MODERATE Urine Mucus MODERATE Urine Hemoglobin NEGATIVE Urine Glucose NEGATIVE Urine Total Protein TRACE Sodium Level 142 Potassium Level 2.1 *L Chloride Level 91 L Carbon Dioxide Level 33 H Anion Gap 20 H Blood Urea Nitrogen 16 Creatinine 0.74 Glucose Level 229 H Hemoglobin A1c 5.5 Calcium Level 10.3 H Total Bilirubin 0.6 Direct Bilirubin 0.00 Indirect Bilirubin 0.6 Aspartate Amino Transf (AST/SGOT) 69 H Alanine Aminotransferase (ALT/SGPT) 51 Alkaline Phosphatase 77 Troponin I 0.042 Total Protein 7.5 Albumin 4.1 Globulin 3.40 H Albumin/Globulin Ratio 1.20 Thyroid Stimulating Hormone (TSH) 4.680 Free Thyroxine 1.54 Lactic Acid Level 5.0 *H 4.2 *H 3.8 H Magnesium Level 1.4 L Carcinoembryonic Antigen 15.6 H CA 19-9 Antigen 24.2 CA 125 Antigen 17.4 Vitamin D 1,25-Dihydroxy < 12.8 L Test 07/29/16 22:32 07/30/16 05:35 Sodium Level 142 139 Potassium Level 2.1 *L 2.7 *L Chloride Level 102 # 105 Carbon Dioxide Level 31 29 Anion Gap 11 # 8 Blood Urea Nitrogen 12 10 Creatinine 0.58 0.56 Glucose Level 105 # 107 Calcium Level 8.5 8.6 White Blood Count 6.5 # Red Blood Count 3.88 #L Hemoglobin 12.0 # Hematocrit 33.4 #L Mean Corpuscular Volume 86.1 Mean Corpuscular Hemoglobin 30.9 Mean Corpuscular Hemoglobin Concent 35.9 Red Cell Distribution Width 13.3 Platelet Count 199 # Mean Platelet Volume 9.3 Neutrophils % 46.5 Lymphocytes % 36.3 Monocytes % 13.5 H Eosinophils % 2.3 Basophils % 0.6 Nucleated Red Blood Cells % 0.0 Neutrophils # 3.0 Lymphocytes # 2.4 Monocytes # 0.9 Eosinophils # 0.2 Basophils # 0.0 Nucleated Red Blood Cells # 0.0 Phosphorus Level 1.1 L Magnesium Level 1.4 L Total Bilirubin 0.4 Direct Bilirubin 0.00 Indirect Bilirubin 0.4 Aspartate Amino Transf (AST/SGOT) 46 Alanine Aminotransferase (ALT/SGPT) 50 Alkaline Phosphatase 59 Creatine Kinase 54 Creatine Kinase Index 3.5 Creatinine Kinase MB (Mass) 1.89 Troponin I 0.032 Total Protein 5.4 #L Albumin 2.8 #L Globulin 2.60 Albumin/Globulin Ratio 1.07 Triglycerides Level 183 H Cholesterol Level 132 LDL Cholesterol, Calculated 48 HDL Cholesterol 47 Cholesterol/HDL Ratio 2.8 Medications Medications Current Medications Potassium Chloride/Sodium Chloride 1,000 ml @ 100 mls/hr Q10H IV Last administered on 07/30/16 09:29; Admin Dose 100 MLS/HR; Start 07/29/16 at 19:00 Aztreonam (Azactam 1gm/NS (Pmx)) 50 ml @ 100 mls/hr Q12 IVPB Last administered on 07/30/16 09:29; Admin Dose 100 MLS/HR; Start 07/30/16 at 01:00 Ondansetron HCl (Zofran Inj) 4 mg Q6H PRN IV NAUSEA AND/OR VOMITING Last administered on 07/30/16 09:40; Admin Dose 4 MG; Start 07/29/16 at 18:30 Acetaminophen (Tylenol Tab) 650 mg Q6H PRN PO PAIN LEVEL 1-3 OR FEVER; Start at 18:30 Acetaminophen/ Hydrocodone Bitart ([place] (5/325)) 1 tab Q6H PRN PO MODERATE PAIN LEVEL 4-6; Start 07/29/16 at 18:30 Morphine Sulfate (morphine) 2 mg Q4H PRN IV SEVERE PAIN LEVEL 7-10 Last administered on 07/30/16 09:40; Admin Dose 2 MG; Start 07/29/16 at 18:30 Zolpidem Tartrate (Ambien) 5 mg QHS PRN PO SLEEP; Start 07/29/16 at 18:30 Famotidine 20 mg 20 mg Q12 IV Last administered on 07/30/16 09:31; Admin Dose 20 MG; Start 07/29/16 at 21:00 Vancomycin HCl 750 mg/Sodium Chloride 150 ml @ 75 mls/hr Q12H IVPB Last administered on 07/30/16 05:54; Admin Dose 75 MLS/HR; Start 07/30/16 at 04:00 Potassium Chloride (KCl 40 MEQ/250 ML NS) 250 ml @ 62.5 mls/hr ONCE ONCE IVPB ; Start 07/30/16 at 10:00; Stop 07/30/16 at 13:59 Magnesium Chloride 64 mg 64 mg BID PO ; Start 07/30/16 at 11:30 Magnesium Sulfate (Magnesium Sulfate 4 Gm/100 ml) 100 ml @ 25 mls/hr ONCE ONCE IVPB ; Start 07/30/16 at 11:30; Stop 07/30/16 at 15:29 CATALINA REYNA July 30, 2016 11:16
[2016-07-30] MEDS ORDERED: MAGNESIUM SULFATE 4 GM/100 ML 100 ML IVPB ONE (11:30)
[2016-07-30] MEDS: MAGNESIUM CHLORIDE (SR) 64 MG TAB PO SCH ×2 (12:34→21:08)
[2016-07-30 12:37] LABS: CALCIUM 8.6 mg/dl (8.4-10.2); CREATININE 0.56 mg/dl (0.44-1.00)
[2016-07-30 12:41] LABS: POTASSIUM 2.9 mmol/L (3.5-5.1)
[2016-07-30] MEDS ORDERED: BISACODYL (EC) 5 MG TAB PO ONE ×2 (16:00→21:00)
[2016-07-30] MEDS ORDERED: MAGNESIUM CITRATE 300 ML BTL PO ONE (17:00)
[2016-07-30] MEDS ORDERED: POLYETHYLENE GLYCOL 3350 119 GM POWDER PO ONE ×2 (18:00→20:00)
[2016-07-31] VITALS (20 sets, daily range): BP systolic 95–157; BP diastolic 51–80; PULSE 75–95; RESP 12–20
[2016-07-31] MEDS: NS + KCL 20 MEQ 1,000 ML IV SCH ×4 (01:41→20:12)
[2016-07-31 04:22] LABS: ADD SCAN DIFF NO
[2016-07-31 04:51] LABS: INR 0.89; PARTIAL THROMBOPLASTIN TIME 20.8 Sec (25.0-35.0); PT RATIO 0.9
[2016-07-31 05:09] LABS: ALBUMIN 2.9 g/dl (3.3-4.9); ALBUMIN/GLOBULIN RATIO 1.11; BILIRUBIN,INDIRECT 0.4 mg/dl (0-1.1); BILIRUBIN,TOTAL 0.4 mg/dl (0.2-1.3); CALCIUM 8.1 mg/dl (8.4-10.2); CREATININE 0.49 mg/dl (0.44-1.00); POTASSIUM 3.8 mmol/L (3.5-5.1); TOTAL PROTEIN 5.5 g/dl (6.1-8.1)
[2016-07-31] MEDS: VANCOMYCIN 750 MG in SOD CHLORIDE 0.9% 150 ML IVPB SCH ×2 (05:15→15:59)
[2016-07-31 07:20] LABS: BASOPHIL # 0.1 10^3/ul (0.0-0.1); BASOPHILS % 0.7 % (0.0-2.0); EOSINOPHILS # 0.2 10^3/ul (0.0-0.5); EOSINOPHILS % 2.1 % (0.0-7.0); HEMOGLOBIN 12.2 g/dl (12.0-16.0); LYMPHOCYTES # 2.2 10^3/ul (0.8-2.9); LYMPHOCYTES % 30.2 % (15.0-51.0); MEAN CORPUSCULAR HEMOGLOBIN 31.1 pg (29.0-33.0); MEAN CORPUSCULAR HGB CONC 34.9 g/dl (32.0-37.0); MEAN CORPUSCULAR VOLUME 89.3 fl (82.0-101.0); MEAN PLATELET VOLUME 9.4 fl (7.4-10.4); MONOCYTES % 13.6 % (0.0-11.0); NEUTROPHIL # 3.9 10^3/ul (1.6-7.5); NEUTROPHILS % 53.3 % (39.0-77.0); PLATELET COUNT 207 10^3/UL (140-415); RED BLOOD COUNT 3.92 10^6/ul (4.20-5.40); RED CELL DISTRIBUTION WIDTH 14.3 % (11.5-14.5); WHITE BLOOD COUNT 7.2 10^3/ul (4.8-10.8)
[2016-07-31] MEDS: FAMOTIDINE 20 MG INJ IV SCH ×2 (09:11→20:27)
[2016-07-31] MEDS: MAGNESIUM CHLORIDE (SR) 64 MG TAB PO SCH ×2 (09:11→20:26)
[2016-07-31] MEDS: morphine 2 MG INJ IV PRN ×2 (09:19→22:29)
--- NOTE | 2016-07-31 11:50 | PN ---
Date/Time of Note Date/Time of Note DATE: 07/31/16 TIME: 11:46 Assessment/Plan VTE Prophylaxis VTE Prophylaxis Intervention: SCD's Lines/Catheters IV Catheter Type (from [facility]): Peripheral IV Urinary Cath still in place: No Assessment/Plan Chief Complaint/Hosp Course ASSESSMENT AND PLAN: 1. SIRS with no evidence of underlying septic shock. Improved significantly , continue IV antibiotics and IV fluid 2. Severe hypokalemia, most probably secondary to underlying potassium loss from diarrhea. The patient's potassium will be repleted. 3. Anion gap acidosis. Most probably secondary to underlying sepsis. Resolved status post IV fluids. 4. Hyperglycemia. Most probably secondary to underlying sepsis. Resolved continue to monitor 5. Acute encephalopathy. Brain CT scan negative for any acute intracranial findings. This could be most probably metabolic in origin from underlying infection. Resolved 6. Possible polypoid mass in the high rectum. This was an incidental finding. Tumor markers will be ordered on this patient. Gastroenterology consult has been obtained and patient will be evaluated via colonoscopy. We will continue monitor patient closely for recommendation management treatment as clinical course repair department manager consult for long-term facility placement for physical therapy Continue to monitor electrolytes Problems: Subjective 24 Hr Interval Summary Free Text/Dictation Patient denies of any chest pain or shortness of breath She does complain of having generalized weakness and having difficulty with ambulation N.p.o. secondary to upcoming procedure/colonoscopy Exam/Review of Systems Vital Signs Vitals Vital Signs Date Time Temp Pulse Resp B/P Pulse Ox O2 Delivery O2 Flow Rate FiO2 07/31/16 11:20 97.8 87 18 121/80 94 07/29/16 18:54 Room Air Intake and Output 07/30/16 07/30/16 07/31/16 15:00 23:00 07:00 Intake Total 2150 ml 2175 ml Balance 2150 ml 2175 ml Exam General: The patient is moderately overweight, Not in acute distress. HEENT: Atraumatic, normocephalic. The pupils are equal and round . Neck: Supple with full range of motion. Chest: Normal expansion of the thorax during inspiration Lungs: Clear to auscultation bilaterally Heart: Normal S1-S2, Regular rhythm and rate. Abdomen: Soft , nontender, nondistended , bowel sounds are present. Extremities: Normal to inspection, no edema no cyanosis Neurologic: Normal mental status,The patient is awake, alert and oriented . Results Result Diagram: 07/31/16 0350 07/31/16 0350 Results 24 hrs Laboratory Tests Test 07/31/16 03:50 White Blood Count 7.2 Red Blood Count 3.92 L Hemoglobin 12.2 Hematocrit 35.0 L Mean Corpuscular Volume 89.3 Mean Corpuscular Hemoglobin 31.1 Mean Corpuscular Hemoglobin Concent 34.9 Red Cell Distribution Width 14.3 Platelet Count 207 Mean Platelet Volume 9.4 Neutrophils % 53.3 Lymphocytes % 30.2 Monocytes % 13.6 H Eosinophils % 2.1 Basophils % 0.7 Nucleated Red Blood Cells % 0.0 Neutrophils # 3.9 Lymphocytes # 2.2 Monocytes # 1.0 H Eosinophils # 0.2 Basophils # 0.1 Nucleated Red Blood Cells # 0.0 Erythrocyte Sedimentation Rate 5 Prothrombin Time 12.0 L Prothrombin Time Ratio 0.9 INR International Normalized Ratio 0.89 Activated Partial Thromboplast Time 20.8 L Sodium Level 139 Potassium Level 3.8 Chloride Level 109 Carbon Dioxide Level 27 Anion Gap 7 L Blood Urea Nitrogen 7 Creatinine 0.49 Glucose Level 100 Lactic Acid Level 2.9 H Calcium Level 8.1 L Magnesium Level 2.7 #H Total Bilirubin 0.4 Direct Bilirubin 0.00 Indirect Bilirubin 0.4 Aspartate Amino Transf (AST/SGOT) 50 H Alanine Aminotransferase (ALT/SGPT) 49 Alkaline Phosphatase 69 Total Protein 5.5 L Albumin 2.9 L Globulin 2.60 Albumin/Globulin Ratio 1.11 Vancomycin Level Trough 12.7 Medications Medications Current Medications Potassium Chloride/Sodium Chloride (NS-KCl 20 Meq) 1,000 ml @ 100 mls/hr Q10H IV Last administered on 07/31/16 01:41; Admin Dose 100 MLS/HR; Start 07/29/16 at 19:00 Ondansetron HCl (Zofran Inj) 4 mg Q6H PRN IV NAUSEA AND/OR VOMITING Last administered on 07/30/16 09:40; Admin Dose 4 MG; Start 07/29/16 at 18:30 Acetaminophen (Tylenol Tab) 650 mg Q6H PRN PO PAIN LEVEL 1-3 OR FEVER; Start at 18:30 Acetaminophen/ Hydrocodone Bitart ([place] (5/325)) 1 tab Q6H PRN PO MODERATE PAIN LEVEL 4-6; Start 07/29/16 at 18:30 Morphine Sulfate (morphine) 2 mg Q4H PRN IV SEVERE PAIN LEVEL 7-10 Last administered on 07/31/16 09:19; Admin Dose 2 MG; Start 07/29/16 at 18:30 Zolpidem Tartrate (Ambien) 5 mg QHS PRN PO SLEEP; Start 07/29/16 at 18:30 Famotidine 20 mg 20 mg Q12 IV Last administered on 07/31/16 09:11; Admin Dose 20 MG; Start 07/29/16 at 21:00 Vancomycin HCl/ Sodium Chloride (Vancocin/NS) 150 ml @ 75 mls/hr Q12H IVPB Last administered on 07/31/16 05:15; Admin Dose 75 MLS/HR; Start 07/30/16 at 04: 00 Magnesium Chloride (Mag 64) 64 mg BID PO Last administered on 07/31/16 09:11; Admin Dose 64 MG; Start 07/30/16 at 11:30 RONNELL ROMO MD July 31, 2016 11:50
[2016-07-31] MEDS ORDERED: PROPOFOL 20 ML ONE (18:27)
[2016-08-01] VITALS (9 sets, daily range): BP systolic 96–117; BP diastolic 51–60; PULSE 90–110; RESP 17–18
[2016-08-01] MEDS: VANCOMYCIN 750 MG in SOD CHLORIDE 0.9% 150 ML IVPB SCH ×2 (03:09→16:00)
[2016-08-01] MEDS: NS + KCL 20 MEQ 1,000 ML IV SCH ×2 (06:04→17:00)
[2016-08-01 06:55] LABS: ADD SCAN DIFF NO
[2016-08-01 06:56] LABS: BASOPHILS % 0.3 % (0.0-2.0); EOSINOPHILS # 0.2 10^3/ul (0.0-0.5); EOSINOPHILS % 1.7 % (0.0-7.0); HEMATOCRIT 37.8 % (37.0-47.0); HEMOGLOBIN 12.6 g/dl (12.0-16.0); LYMPHOCYTES # 1.6 10^3/ul (0.8-2.9); MEAN CORPUSCULAR HEMOGLOBIN 30.9 pg (29.0-33.0); MEAN CORPUSCULAR HGB CONC 33.3 g/dl (32.0-37.0); MEAN CORPUSCULAR VOLUME 92.6 fl (82.0-101.0); MEAN PLATELET VOLUME 9.1 fl (7.4-10.4); MONOCYTE # 0.8 10^3/ul (0.3-0.9); MONOCYTES % 8.4 % (0.0-11.0); NEUTROPHIL # 7.1 10^3/ul (1.6-7.5); NEUTROPHILS % 73.3 % (39.0-77.0); PLATELET COUNT 181 10^3/UL (140-415); RED BLOOD COUNT 4.08 10^6/ul (4.20-5.40); RED CELL DISTRIBUTION WIDTH 14.8 % (11.5-14.5); WHITE BLOOD COUNT 9.7 10^3/ul (4.8-10.8)
[2016-08-01 07:56] LABS: ALBUMIN 2.8 g/dl (3.3-4.9); ALBUMIN/GLOBULIN RATIO 1.07; BILIRUBIN,INDIRECT 0.4 mg/dl (0-1.1); BILIRUBIN,TOTAL 0.4 mg/dl (0.2-1.3); CREATININE 0.5 mg/dl (0.44-1.00); MAGNESIUM 2.2 mg/dl (1.7-2.5); POTASSIUM 3.6 mmol/L (3.5-5.1); TOTAL PROTEIN 5.4 g/dl (6.1-8.1)
[2016-08-01] MEDS: FAMOTIDINE 20 MG INJ IV SCH (08:53)
[2016-08-01] MEDS: MAGNESIUM CHLORIDE (SR) 64 MG TAB PO SCH (08:53)
--- NOTE | 2016-08-01 10:48 | PDOCDIS ---
Discharge Instructions CONDITION Patient Condition: Good HOME CARE INSTRUCTIONS: Special Diet: Diabetic diet ACTIVITY: Activity Restrictions: Slowly Increase Activity Rest between Activity Avoid heavy lifting Special Program FOLLOW UP/APPOINTMENTS Appointments Follow up with Dr. So in 2 weeks Follow up with Dr. Rufino Garcia in 2 weeks RONNELL ROMO MD August 01, 2016 10:48
[2016-08-01] MEDS ORDERED: ACET325T40 PO (10:57)
[2016-08-01] MEDS ORDERED: PANT40SU PO (10:57)
[2016-08-01] MEDS ORDERED: LEVO500T72 PO (10:57)
[2016-08-01] MEDS ORDERED: SLOMAG PO (10:57)
[2016-08-01] MEDS ORDERED: METR500T PO (10:57)
[2016-08-01] MEDS ORDERED: HYDR-3498 PO (10:57)
--- NOTE | 2016-08-01 12:03 | GILP ---
DATE OF PROCEDURE: PROCEDURE: Colonoscopy with snare polypectomy plus ablation plus localization to 2+ biopsies. PREMEDICATION: Monitored anesthesia care by anesthesiologist. SURGEON: Krista So MD INSTRUMENT USED: Olympus colonoscope. PREPARATION: Fair. TECHNIQUE: After informed consent, with the patient/relatives understanding the procedure, its indic ations potential risks and complications, including but not limited to: allergic reaction, bleeding, perforation, infection, missed lesions and after all pertinent questions were answered to the patie nt's satisfaction, the patient/relatives signed the witnessed informed consent. Following this, premedication was administered slowly IV push by under careful cardiovascular and re spiratory monitoring with pulse oximetry, automatic blood pressure and secured entrance monitor. Once the sedativ e effect was achieved, the patient was placed in the left lateral decubitus position, digital rectal examination was performed. The colonoscope was then introduced and advanced under visual control th roughout all segments of the colon including: the rectum, sigmoid, descending colon, splenic flexure , transverse colon, hepatic flexure, ascending colon and finally reaching the cecum which was clearl y identified by transillumination, finger indentation and the ileocecal valve. Careful examination o f the mucosa of the lower gastrointestinal tract both on insertion as well as withdrawal of the inst rument disclosed the following findings: Rectal Examination: There are very prominent internal hemorrhoids and an area of ulcerations noted at the end of the rectal junction is somewhat suspicious. Biopsies were obtained. A 1 cm rectal ulc eration is also noted. Biopsies were obtained. An area of significant inflammatory changes in a se gmental distribution in the sigmoid colon was identified. Biopsies were obtained. A 1 cm flat poly p was noted in the descending colon was tattooed and ablated as it was flat. Colonic Mucosa: A 1 cm polyp was noted in the proximal rectosigmoid area. It was removed with sali ne assisted polypectomy and the area was tattooed. A 3 cm broadbased polyp was noted in the proxima l rectum and was biopsied. A few diverticula were noted in the left side of the colon. The instrument was then withdrawn, the patient tolerated the procedure well and was transferred out of the Endoscopy Suite awake and in good condition to continue recovery under observation. IMPRESSION: 1. Prominent internal hemorrhoids. 2. Area of ulceration at the endorectal junction, rule out neoplasm. Biopsies obtained. 3. A 1 cm rectal ulcer. Biopsies obtained. 4. Ulcerated segmental colitis in the sigmoid, biopsies obtained. 5. A 1 cm flat polyp in the distal descending colon post-ablation and localization tattoo. 6. A 1 cm polyp in the rectosigmoid area post-saline assisted polypectomy and localization tattoo. 7. A 3 cm broadbased polyp in the proximal rectum, biopsied. 8. Mild diverticulosis left side of the colon. PLAN: Pathology will be reviewed. The patient will likely require surgery for the larger lesion th at cannot be endoscopically removed. Dictated By: KRISTA LANDERS Conf#: [id number] DID#: [id number]
--- NOTE | 2016-08-01 13:36 | PN ---
Date/Time of Note Date/Time of Note DATE: 08/01/16 TIME: 13:31 Assessment/Plan VTE Prophylaxis VTE Prophylaxis Intervention: SCD's Lines/Catheters IV [facility] Peripheral IV Urinary Cath still in place: No Assessment/Plan Assessment/Plan Assessment * Rectal mass Colonoscopy 07/31/2016 Prominent internal hemorrhoids. . Area of ulceration at the endorectal junction, rule out neoplasm. Biopsies obtained. . A 1 cm rectal ulcer. Biopsies obtained. . Ulcerated segmental colitis in the sigmoid, biopsies obtained. . A 1 cm flat polyp in the distal descending colon post- ablation and localization tattoo. . A 1 cm polyp in the rectosigmoid area post-saline assisted polypectomy and localization tattoo. . A 3 cm broadbased polyp in the proximal rectum, biopsied. . Mild diverticulosis left side of the colon. * Hypokalemia resolved * Plan * stable for outpatient management * follow up with surgery in 2 weeks * gi follow up in 2 weeks Subjective 24 Hr Interval Summary Free Text/Dictation * Course reviewed with RN * Patient seen and examined * No diarrhea * Colonoscopy 07/31/2016 * Prominent internal hemorrhoids. . Area of ulceration at the endorectal junction, rule out neoplasm. Biopsies obtained. . A 1 cm rectal ulcer. Biopsies obtained. Ulcerated segmental colitis in the sigmoid, biopsies obtained. . A 1 cm flat polyp in the distal descending colon post-ablation and localization tattoo. A 1 cm polyp in the rectosigmoid area post-saline assisted polypectomy and localization tattoo. A 3 cm broadbased polyp in the proximal rectum, biopsied. . Mild diverticulosis left side of the colon Exam/Review of Systems Vital Signs Vitals Vital Signs Date Time Temp Pulse Resp B/P Pulse Ox O2 Delivery O2 Flow Rate FiO2 08/01/16 11:36 98.5 103 17 107/59 96 07/31/16 19:37 Room Air 07/31/16 19:07 10 Intake and Output 07/31/16 07/31/16 08/01/16 15:00 23:00 07:00 Intake Total 460 ml 1220 ml Balance 460 ml 1220 ml Exam Constitutional: alert Neck: non-tender, supple Respiratory: clear to auscultation, normal air movement Cardiovascular: nl pulses, regular rate and rhythm Gastrointestinal: non-tender, soft Musculoskeletal: nl extremities to inspection, nl gait and stance Results Result Diagram: 08/01/16 0642 08/01/16 0642 Results 24 hrs Laboratory Tests Test 07/31/16 20:35 08/01/16 06:42 Lactic Acid Level 2.3 H White Blood Count 9.7 # Red Blood Count 4.08 L Hemoglobin 12.6 Hematocrit 37.8 Mean Corpuscular Volume 92.6 Mean Corpuscular Hemoglobin 30.9 Mean Corpuscular Hemoglobin Concent 33.3 Red Cell Distribution Width 14.8 H Platelet Count 181 Mean Platelet Volume 9.1 Neutrophils % 73.3 Lymphocytes % 16.0 Monocytes % 8.4 Eosinophils % 1.7 Basophils % 0.3 Nucleated Red Blood Cells % 0.0 Neutrophils # 7.1 Lymphocytes # 1.6 Monocytes # 0.8 Eosinophils # 0.2 Basophils # 0.0 Nucleated Red Blood Cells # 0.0 Sodium Level 137 Potassium Level 3.6 Chloride Level 106 Carbon Dioxide Level 25 Anion Gap 10 Blood Urea Nitrogen 8 Creatinine 0.50 Glucose Level 109 Calcium Level 8.0 L Magnesium Level 2.2 Total Bilirubin 0.4 Direct Bilirubin 0.00 Indirect Bilirubin 0.4 Aspartate Amino Transf (AST/SGOT) 43 Alanine Aminotransferase (ALT/SGPT) 44 Alkaline Phosphatase 75 Total Protein 5.4 L Albumin 2.8 L Globulin 2.60 Albumin/Globulin Ratio 1.07 Medications Medications Current Medications Potassium Chloride/Sodium Chloride (NS-KCl 20 Meq) 1,000 ml @ 100 mls/hr Q10H IV Last administered on 08/01/16 06:04; Admin Dose 100 MLS/HR; Start 07/29/16 at 19:00 Ondansetron HCl (Zofran Inj) 4 mg Q6H PRN IV NAUSEA AND/OR VOMITING Last administered on 07/30/16 09:40; Admin Dose 4 MG; Start 07/29/16 at 18:30 Acetaminophen (Tylenol Tab) 650 mg Q6H PRN PO PAIN LEVEL 1-3 OR FEVER; Start at 18:30 Acetaminophen/ Hydrocodone Bitart ([place] (5/325)) 1 tab Q6H PRN PO MODERATE PAIN LEVEL 4-6; Start 07/29/16 at 18:30 Morphine Sulfate (morphine) 2 mg Q4H PRN IV SEVERE PAIN LEVEL 7-10 Last administered on 07/31/16 22:29; Admin Dose 2 MG; Start 07/29/16 at 18:30 Zolpidem Tartrate (Ambien) 5 mg QHS PRN PO SLEEP; Start 07/29/16 at 18:30 Famotidine 20 mg 20 mg Q12 IV Last administered on 08/01/16 08:53; Admin Dose 20 MG; Start 07/29/16 at 21:00 Vancomycin HCl/ Sodium Chloride (Vancocin/NS) 150 ml @ 75 mls/hr Q12H IVPB Last administered on 08/01/16 03:09; Admin Dose 75 MLS/HR; Start 07/30/16 at 04: 00 Magnesium Chloride (Mag 64) 64 mg BID PO Last administered on 08/01/16 08:53; Admin Dose 64 MG; Start 07/30/16 at 11:30 KRISTA GRACE MD August 01, 2016 13:36
--- NOTE | 2016-08-01 13:55 | DS ---
DATE OF ADMISSION: 07/29/2016 DATE OF DISCHARGE: 08/01/2016 CONSULTANTS: 1. Emergency Veterinary Technician, Dr. Jace So. 2. Dr. Rufino Garcia, general surgery. DIAGNOSES: 1. Systemic inflammatory response syndrome with no evidence of septic shock. 2. Severe hypokalemia, resolved. 3. Intractable diarrhea, resolved. 4. Anion gap acidosis secondary to underlying sepsis versus diarrhea, status post IV fluid, resolve d. 5. Hyperglycemia, stable. 6. Acute encephalopathy. CT of the brain was negative for any acute intracranial finding. It is l ikely metabolic encephalopathy, resolved. 7. Polypoid masses in the high rectum, status post colonoscopy. 8. Prominent internal hemorrhoids stable. 9. A 1 cm rectal ulcer, status post biopsy. 10. A 1 cm flat polyp in the distal colon. 11. A 3 cm broad-based polyp. General surgery has been consulted for further evaluation. MEDICATIONS: 1. Tylenol. 2. [place]. 3. Normal saline plus KCl. 4. Magnesium chloride. 5. Ambien. 6. Ensure. 7. Protonix. 8. Zofran. 9. Levaquin x7 days. 10. Flagyl x7 days. DISCHARGE INSTRUCTIONS: 1. Diet: Low carb diet. 2. PT, OT evaluate and treat. 3. Follow up biopsy. 4. Follow up with Dr. So, GI, in 1 to 2 weeks. 5. Follow up with Dr. Garcia in 2 weeks. LABORATORY DATA: Sodium 137, potassium 3.6, chloride 106, bicarbonate 25, BUN 8, creatinine 0.50, g lucose 109, calcium 8.0, magnesium 2.2. LFTs all within normal limits. Albumin 2.8. Triglycerides 183, total cholesterol 132, LDL 48, HDL 47. CEA 15.6. CA 19-9 of 24.2. CA-125 of 17.4 Vitamin D less than 12.8. TSH 4.6, free T4 of 1.54. HOSPITAL COURSE: This is a 65-year-old female with past medical history of dyslipidemia, who denies any other significant past medical history, who presented to the emergency room by family member be cause of multiple episodes of diarrhea, generalized weakness, bizarre behavior as per family. The p amadou was living in [place] by herself for the past 3 weeks and has been suffering with frequent diarrhea and frequent urination. The patient also verbalized some blood particles and other particl es in her stool. The patient was found to be altered. CT of the brain was obtained which did not d emonstrate any acute finding. The patient was found to have severe hypokalemia with potassium of 2. 1. Also found to have anion gap acidosis with anion gap of 20. She also found to have lactic acido sis with lactic acid of 5.0 and glucose 29. There was no leukocytosis. The patient was afebri le. As stated above, CT of the brain in the emergency room was negative for any acute intracranial abnormality. She underwent CT of the abdomen and pelvis showed multiple gallstones in the gallbladd er, but normal gallbladder wall. Diffuse diverticulosis of the sigmoid colon and transverse colon w ithout any evidence of diverticulitis. Also, 2.3 x 1.8 cm possible polyploid mass in the right rect um. She was started on IV fluid, IV antibiotics, potassium replacement in the emergency room and wa s admitted to telemetry floor. She was seen and evaluated by paper plate machine tender. She had a bowel prepped and was taken to the GI l ab for colonoscopy with results as above. One of the polyps was removed, although the at 3 cm polyp , which was broad-based, was not able to be removed and as per paper plate machine tender, the patient needs to be evaluated by general surgery for further evaluation as an outpatient. I have contacted the christina tobar's daughter, Telma and she has requested that the patient should be seen by Dr. Rufino Quiñones i, who also has taken care of her father. I contacted Dr. Garcia, he will evaluate the patient as a n in-patient and also follow up the patient as an outpatient. The biopsy/pathology is still pending and this was also discussed with the patient's daughter. They will follow this biopsy and patholog y when they follow up with paper plate machine tender as an outpatient. Regarding the hyperglycemia, the patient was placed on IV fluid and it has resolved. Anion gap acid osis is likely secondary to the intractable diarrhea which has resolved. At this time, the patient is medically stable. From a paper plate machine tender point, the patient is also stable to be transferred to half-way facility. The patient does complain of having generali zed weakness. Therefore, I have discussed this matter with the patient's daughter and we have agree d that patient should be transferred to half-way facility for physical therapy and frequent l abs, suggest CBC and BMP tomorrow 08/02/2016 and 08/04/2016. CONDITION AT TIME OF DISCHARGE: Stable. Dictated By: RONNELL ROMO MD PN/NTS Conf#: [id number] DID#: [id number]
--- NOTE | 2016-08-01 14:51 | CONS ---
[facility] INITIAL INPATIENT CONSULTATION NOTE DATE OF CONSULTATION: 08/01/2016 PLACE OF SERVICE: [facility], 5th floor telemetry ASSESSMENT AND PLAN: A very pleasant 65-year-old lady with a few comorbid issues including BMI of 32 as well as dyslipidemia, presenting with a picture concerning for colorectal malignancy. Currently, the biopsies are pending, but there are several ulcerated areas as well as polyps, one of which could not be completely removed. She also has diverticulosis of the descending colon. Despite a negative brain CT and being alert and oriented x3 I also have concerns about the patient's overall mental status and other diagnostic possibilities including early onset dementia as well as schizophrenia should be evaluated for. We also should think about infectious issues such as HIV and for this reason, this testing should also be done. The patient may be eligible for surgical intervention and should it be needed, and we will wait for biopsy results and further multidisciplinary discussion prior to meeting with the patient and family in my office and discussing the options. I tried to explain this to the patient and answered all her questions to the best of my ability. I believe that she understood and agreed with the plan. With above assessment, I have recommended the followin. Consider HIV testing. 2. Consider psychiatric evaluation and consultation. 3. Above 2 may be done as an outpatient since the patient is about to be discharged to a longterm. 4. I agree with discharge longterm. 5. Follow up with my office in 1 to 2 weeks to review pathology results, as well as options. 6. Multidisciplinary Tumor Board presentation. Thank you again for allowing us to participate in the care of this very pleasant lady and her wonderful family. If there are any questions, please feel free to contact me at [phone]. Updated clinical summary. Patient is a very pleasant 65-year-old lady with comorbidities including BMI of 32, prior left tubal ligation and oophorectomy, and dyslipidemia who was admitted initially with generalized weakness, multiple episodes of diarrhea and "bizarre behavior" and later found to have ulcerations in her rectum and sigmoid colon, as well as severe diverticulosis and multiple polyps, one of which could not be completely removed. COMORBIDITIES: 1. BMI 32. 2. 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 3. Status post tubal ligation. 4. Dyslipidemia. 5. Sepsis July 2016 during this admission. 6. Severe hypokalemia during this admission. 7. Hyperglycemia during that this admission. 8. Acute encephalopathy with negative brain CT July 2016. 9. Status post colonoscopy 07/31/2016. 10. Prominent internal hemorrhoids. 11. Area of ulceration at the endorectal junction, biopsies pending. 12. A 1 cm rectal ulcer. 13. Ulcerated segmental colitis in the sigmoid, biopsies pending. 14. A 1 cm flat polyp in the distal descending colon post-ablation and localization tattoo. 15. A 1 cm polyp in the rectosigmoid area post-saline assisted polypectomy and localization tattoo. 16. A 3 cm broad-based polyp in the proximal rectum, biopsies pending. 17. Mild diverticulosis of the left side of the colon. DATE OF ADMISSION: 07/29/2016 HISTORY OF PRESENT ILLNESS: The patient is a very pleasant 65-year-old lady with above-mentioned comorbidities whom we were kindly asked to consult regarding management of the new findings on the rectum, as noted above. The patient herself reported no abdominal pain, but did report having multiple episodes of diarrhea and some blood in there over the last number of days. No associated nausea or vomiting reported. No significant change in weight noted by the patient or in the chart. ALLERGIES: PROCAINE WITHOUT KNOWN REACTION. HOME MEDICATIONS: Included: 1. Acetaminophen. 2. [place]. 3. Levaquin. 4. Magnesium chloride. 5. Flagyl. 6. Protonix. SOCIAL HISTORY: The patient [place] [facility], but she was recently brought to [facility] for more social support and due to above-mentioned weakness and altered behavior. She does not report any current smoking, drinking, or intravenous drug use. She used to work as a certified nurse medication assistant. FAMILY HISTORY: Other than the type 2 diabetes mellitus in the family, there are no other pertinent positives or there are no other major medical, surgical or oncologic problems in the family. REVIEW OF SYSTEMS: An attempt was made to do a complete 14-point review of systems but the patient was responding in a less than normal and extracted manner, although she was alert and oriented x3. PHYSICAL EXAMINATION: GENERAL: The patient appears to be a very pleasant lady of non- descent, appearing stated age, lying in bed comfortably and in no acute distress. BMI is 32.0. VITAL SIGNS: Temperature 98.5, blood pressure 107/59, pulse 103, respiratory rate 17, pulse oximetry 96% on room air. HEENT: Normocephalic and atraumatic. Extraocular muscles and hearing are grossly intact bilaterally and symmetrically. Sclerae are nonicteric. Oral cavity is clear; oral mucosa appeared to be pink and moist. Dentition: poor. NECK: Supple. There is no lymphadenopathy or JVD. There is no submental, submandibular or supraclavicular lymphadenopathy. CHEST: Rises symmetrically with each breath; patient is breathing comfortably. There are no audible wheezes, rales or rhonchi on the gross exam. HEART: Pulse is regular and palpable on the left wrist. Capillary refill was normal. Carotid pulses are palpable bilaterally and symmetrically in the neck. EXTREMITIES: Lower extremities contain 1+ pitting edema bilaterally and symmetrically. ABDOMEN: Abdomen is soft, nontender and nondistended. There are no peritoneal signs or guarding. No evidence of ascites, organomegaly, caput medusae, engorged subcutaneous veins, or other abnormalities. SKIN: Appears to be pink and feels warm to touch. NEUROLOGIC: Awake, alert, and follows commands appropriately. LABORATORY DATA: White blood cell count 9.7, hemoglobin 12.9, platelets 181. Electrolytes are normal. CO2 of 25, creatinine 0.5. Total bilirubin 0.4, AST 43, ALT 44, alkaline phosphatase 75, albumin 2.8. After resuscitation. Triglycerides 183, cholesterol normal. CA-125 17.4, CA-19-0 24.2. CEA 15.6 with normal being from 0 to 5. INR 0.89. Urinalysis showed 2+ leukocyte esterase and no nitrites. Stool occult blood was negative. Hepatitis B surface antigen was negative, and hepatitis C antibody was negative. MICROBIOLOGY C. difficile culture was negative as well as 2 blood cultures. Urine culture showed mixed gram-positive organisms. IMAGING: Patient had the above-mentioned brain CT as well as abdominal and pelvic CT. Note that I personally reviewed all the available and pertinent images and I agree in general with their overall reported findings. Dictated By: ALFREDO MCCRACKEN/RAMIRO Conf#: [id number] [facility]#: [id number] MTDD
== END 2016-08-01 17:23 | DRG 871 ==
LOC: E/R 14:37 → TEL 16:31
PROVIDERS: ADMIT Family Medicine; ATTEND Family Medicine
PROC: 0DBN8ZX Excision of Sigmoid Colon, Via Natural or Artificial Opening Endoscopic, Diagnostic (ICD-10-PCS; principal; 2016-07-31 19:30)
PROC: 0DBP8ZX Excision of Rectum, Via Natural or Artificial Opening Endoscopic, Diagnostic (ICD-10-PCS; 2016-07-31 19:30)
PROC: 0DBM8ZX Excision of Descending Colon, Via Natural or Artificial Opening Endoscopic, Diagnostic (ICD-10-PCS; 2016-07-31 19:30)
DX: A41.9 Sepsis, unspecified organism (principal); G93.40 Encephalopathy, unspecified; E87.2 Acidosis; E83.42 Hypomagnesemia; E55.9 Vitamin D deficiency, unspecified; K62.6 Ulcer of anus and rectum; N39.0 Urinary tract infection, site not specified; E87.6 Hypokalemia; K57.30 Diverticulosis of large intestine without perforation or abscess without bleeding; R19.7 Diarrhea, unspecified; R73.9 Hyperglycemia, unspecified; E83.39 Other disorders of phosphorus metabolism; K56.41 Fecal impaction; D12.4 Benign neoplasm of descending colon; D12.7 Benign neoplasm of rectosigmoid junction
CPT/HCPCS: 36415; 70450; 71010; 74176; 80048; 80053; 80061; 80202; 81001; 81003; 82270; 82378; 82550; 82553; 82652; 83036; 83605; 83735; 84100; 84439; 84443; 84484; 85025; 85610; 85651; 85730; 86301; 86304; 86592; 86803; 87040; 87045; 87075; 87086; 87205; 87340; 88305; 93005; 96374; 96375; J2270; J2405; J3370; J3480; J7030

== ENCOUNTER 2016-08-23 12:41 | Outpatient (CLI) | payer MEDICARE, OTHER ==
[~2016-08-23] VITALS: Ht 172.7 cm; Wt 96.8 kg
[~2016-08-23 12:41] MED LIST: ACET325T40 PO; HYDR-3498 PO; LEVO500T72 PO; METR500T PO; PANT40SU PO; SLOMAG PO
[2016-08-23 13:14] VITALS: BP 129/63; PULSE 88; RESP 18; Ht 172.7 cm; Wt 96.8 kg
[2016-08-23] MEDS ORDERED: PROT946L PO (13:14)
[2016-08-23] MEDS ORDERED: MULT-105 PO (13:14)
[2016-08-23] MEDS ORDERED: LACTINEX PO (13:14)
[2016-08-23] MEDS ORDERED: ONDA-43 PO (13:14)
[2016-08-23] MEDS ORDERED: HYDR-906 PO (13:14)
[2016-08-23] MEDS ORDERED: ZOLP5TAB7 PO (13:14)
--- NOTE | 2016-08-23 13:40 | PN ---
Date/Time of Note Date/Time of Note DATE: 08/23/16 TIME: 13:31 Assessment/Plan Assessment/Plan Assessment/Plan [facility] Progress Note Date of Service: 08/23/16 Today's Impression & Plan: Overall stable and appears much improved. Fortunately, no evidence of malignancy or other worrisome features in any of the multiple pathology specimens that were sent by Dr. So. I spoke with Dr. So and agreed with his plan of seeing patient in follow up and likely repeating the colonoscopy in the next few weeks. If the 3 cm polyp in upper rectum is accessible trans-anally , she might benefit from this procedure. Due to specialty of this situation, I recommend obtaining a colon and rectal surgeon's opinion about this procedure should the polyp need to be removed. Explained all of the above to patient and family and answered all of their questions. With above assessment, I've recommended the following for today: 1. F/u with PCP 2. F/u with Dr. So 3. Strongly recommend colon and rectal surgery consultation regarding possible transanal removal of the high rectal 3 cm polyp 4. F/u with us prn Thank you again for your great care of this very pleasant patient and wonderful family. If there are any questions, please feel free to call me at [phone]. TOTAL VISIT TIME: 20 minutes of which more than half was spent in [id number] discussion with the patient, possibly including family, as well as coordination of care between multiple physicians and providers. Disclaimer: Inadvertent spelling or grammatical errors are likely due to EHR/ dictation software use and do not reflect on the overall quality of patient care. Updated Clinical Summary: Patient is a very pleasant 65-year-old lady with comorbidities including BMI of 32, prior left tubal ligation and oophorectomy, and dyslipidemia who was admitted initially with generalized weakness, multiple episodes of diarrhea and "bizarre behavior" and later found to have ulcerations in her rectum and sigmoid colon, as well as severe diverticulosis and multiple polyps, one of which could not be completely removed. Final path 07/31/16: MICROSCOPIC DIAGNOSIS: A-Rectum, ulcer biopsy: Mucosal ulceration with granulation tissue reaction and a purulent exudate compatible with solitary rectal ulcer syndrome (mucosal prolapse). No parasites or viral inclusions are identified. There is mild acute inflammation in the adjacent non-ulcerated mucosal. There is no evidence of chronic colitis or malignancy. B-Rectum, biopsy: Colon mucosa with a few scattered neutrophils in the lamina propria, histologically non- specific. There is no evidence of chronic colitis or malignancy. C-Distal descending colon polyp: Hyperplastic polyp. There is no evidence of malignancy. D-Sigmoid colon, biopsy: Colon mucosa showing a focus of atrophy and mucin depletion of colon crypts, with mild fibrosis of the lamina propria, consistent with localized ischemia. No parasites, viral inclusions or granulomas are identified. There is no evidence of malignancy. E-Rectum polypectomy: Hyperplastic polyp. There is no evidence of malignancy. F-Rectal polyp biopsy: Villous adenoma. No normal mucosa is present. No evidence of high grade dysplasia or malignancy. COMORBIDITIES: 1. BMI 32. 2. 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 3. Status post tubal ligation. 4. Dyslipidemia. 5. Sepsis July 2016 during this admission. 6. Severe hypokalemia during this admission. 7. Hyperglycemia during that this admission. 8. Acute encephalopathy with negative brain CT July 2016. 9. Status post colonoscopy 07/31/2016. 10. Prominent internal hemorrhoids. 11. Area of ulceration at the endorectal junction, biopsies pending. 12. A 1 cm rectal ulcer. 13. Ulcerated segmental colitis in the sigmoid, biopsies pending. 14. A 1 cm flat polyp in the distal descending colon post-ablation and localization tattoo. 15. A 1 cm polyp in the rectosigmoid area post-saline assisted polypectomy and localization tattoo. 16. A 3 cm broad-based polyp in the proximal rectum, biopsies pending. 17. Mild diverticulosis of the left side of the colon. Subjective: No major events or complaints; no abd pain; no n/v/d; no sob or cp; + flatus; + BM; + activity; feels much better than before Objective: Vitals: See below Exam: GENERAL: On exam, the patient was sitting in a chair and appeared to be comfortable and in no acute distress. ABDOMEN: Soft, nontender and nondistended. There are no peritoneal signs or guarding. SKIN: Skin appears to be pink and feels warm to touch. NEUROLOGIC: Patient is awake, alert, and follows commands appropriately. Exam/Review of Systems Vital Signs Vitals Vital Signs Date Time Temp Pulse Resp B/P Pulse Ox O2 Delivery O2 Flow Rate FiO2 08/23/16 13:14 97.9 88 18 129/63 99 Room Air ALFREDO PINEDA M.D. August 23, 2016 13:40
== END 2016-08-23 15:36 | disposition home or self-care (01) ==
LOC: HPC 12:41
PROVIDERS: ATTEND Transplant Surgery
DX: R53.1 Weakness (principal); R19.7 Diarrhea, unspecified; K62.1 Rectal polyp; K63.5 Polyp of colon; K57.90 Diverticulosis of intestine, part unspecified, without perforation or abscess without bleeding; K64.8 Other hemorrhoids
CPT/HCPCS: G0463

== ENCOUNTER 2016-10-30 12:34 | Day surgery (SDC) | payer MEDICARE, OTHER ==
[~2016-10-30] VITALS: Ht 170.2 cm; Wt 99.0 kg
[~2016-10-30 12:34] MED LIST changes: -HYDR-3498 PO; +HYDR-906 PO; +LACTINEX PO; -LEVO500T72 PO; -METR500T PO; +MULT-105 PO; +ONDA-43 PO; +PROT946L PO; +ZOLP5TAB7 PO
[2016-10-30 14:01] VITALS: Ht 170.2 cm; Wt 99.0 kg
[2016-10-30] MEDS ORDERED: POTASSIUM (14:18)
[2016-10-30 16:21] VITALS: BP 165/84; PULSE 65; RESP 17
--- NOTE | 2016-10-30 17:43 | OPR ---
Date/Time of Note Date/Time of Note DATE: 10/30/16 TIME: 17:39 Operative Report Preoperative Diagnosis Colon polyps/attempts at resection Postoperative Diagnosis Impression: * Large more than 3 cm broad-based polyp in the sigmoid colon. Post saline assisted polypectomy and retrieval. Post Endo Clip placement 3 for approximation of edges. * 1.5 cm broad-based polyp descending colon. Post saline assisted polypectomy, retrieval and localization tattoo * 8 mm sessile polyp partially within a diverticulum transverse colon. Ablated * Severe diverticulosis, universal * Moderate-sized internal hemorrhoids Plan: * Close observation * Clear liquid diet 24 hours * Review pathology as soon as available . Operation/Procedure Performed Colonoscopy with saline assisted polypectomy Colonoscopy with ablation Colonoscopy with localization tattoo Surgeon: KRISTA GRACE MD Anesthesia Type: MAC Estimated Blood Loss: minimal Transfusion Required: no Specimens * 3 cm broad-based polyp in the sigmoid colon. Post saline assisted polypectomy and retrieval. Post Endo Clip placement 3 * 1.5 cm broad-based polyp descending colon. Post saline assisted polypectomy, retrieval and localization tattoo * 8 mm sessile polyp partially within a diverticulum transverse colon. Ablated Grafts/Implants: none Complications: no KRISTA GRACE MD Oct 30, 2016 17:43
[2016-10-30 18:15] VITALS: BP 154/70; PULSE 69; RESP 13
--- NOTE | 2016-10-31 02:35 | GILP ---
DATE OF PROCEDURE: 10/30/2016 PROCEDURE: Colonoscopy with saline-assisted polypectomy; colonoscopy with polyp ablation; colonoscopy with localization x2. HISTORY AND INDICATIONS: This is a patient is with a large polyp in the sigmoid area, which came back hyperplastic in nature. The patient is here for re-evaluation and possible resection. The increased risk of resection of a large polyp with a broad base has been discussed with the patient and her family, including the risk of perforation. PREMEDICATION: Monitored anesthesia care by Anesthesiologist. INSTRUMENT USED: Colonoscope. PREPARATION: Fair. TECHNIQUE: After informed consent, with the patient/relatives understanding the procedure, its indications potential risks and complications, including but not limited to: allergic reaction, bleeding, perforation, infection, missed lesions and after all pertinent questions were answered to the patient's satisfaction, the patient/relatives signed the witnessed informed consent. Following this, premedication was administered slowly IV push by under careful cardiovascular and respiratory monitoring with pulse oximetry, automatic blood pressure and quality assurance monitor. Once the sedative effect was achieved, the patient was placed in the left lateral decubitus position, digital rectal examination was performed. The colonoscope was then introduced and advanced under visual control throughout all segments of the colon including: the rectum, sigmoid, descending colon, splenic flexure, transverse colon, hepatic flexure, ascending colon and finally reaching the cecum which was clearly identified by transillumination, finger indentation and the ileocecal valve. Careful examination of the mucosa of the lower gastrointestinal tract both on insertion as well as withdrawal of the instrument disclosed the following findings: RECTAL EXAMINATION: No evidence of perirectal disease, no masses. Small external hemorrhoids are noted. COLONIC MUCOSA: There is a large 3-cm broad-based, semi- pedunculated polyp in the sigmoid colon. The instrument was advanced. There was extensive diverticulosis. A 1.5-cm broad- based polyp was evidence in the descending colon. An 8-mm sessile polyp, partially within the diverticulum, was noted in the transverse colon. The remainder of the colon mucosa is unremarkable. The ileocecal valve was clearly identified and appears unremarkable. On withdrawal of the instrument, the sessile polyp in the transverse colon within the diverticulum was ablated with biopsy forceps. The 1.5-cm broad-based polyp in the descending colon was removed with saline-assisted polypectomy and localization x2 was applied. The larger lesion, measuring 3 cm, broad-based polyp in the sigmoid colon, was removed with saline-assisted polypectomy and retrieval. Endoclip x3 was applied to approach the resection margins. Moderate-sized internal hemorrhoids are noted. No evidence of immediate complications. IMPRESSION: The patient and her family have been advised to remain on a clear liquid diet, at least for 24 hours and to report immediately for nausea, vomiting, or evidence of gastrointestinal bleeding. Pathology will be reviewed. Pending review, will determine further care. Very likely will repeat colonoscopy in 3 months would be advisable to reassess areas of resection. Dictated By: Jace So MD /elvis/eliseo /Document#: [id number]
== END 2016-10-30 18:06 | disposition home or self-care (01) ==
LOC: GIL 12:34
PROVIDERS: ATTEND Internal Medicine Gastroenterology
DX: D12.5 Benign neoplasm of sigmoid colon (principal); K57.90 Diverticulosis of intestine, part unspecified, without perforation or abscess without bleeding; K64.8 Other hemorrhoids; D12.4 Benign neoplasm of descending colon; F03.90 Unspecified dementia, unspecified severity, without behavioral disturbance, psychotic disturbance, mood disturbance, and anxiety
CPT/HCPCS: 82962; 88305